=== PATIENT | female | born 1960 | race Caucasian/White ===

== ENCOUNTER → 2021-11-08 | Outpatient (CLI) | payer BC ==
[~2021-11-08] MED LIST: Ferrous Sulfat325 MG; METO25ER PO; NAPR550 PO; OXYACE5T PO; Omeprazole20 M1; SERT100 PO
== END | disposition home or self-care (01) ==
LOC: PLD 07:21 → LAB SHORT 07:21
DX: L72.9 Follicular cyst of the skin and subcutaneous tissue, unspecified (principal)
CPT/HCPCS: 88305

== ENCOUNTER → 2021-12-01 | Outpatient (CLI) | payer BC ==
[2021-12-05 15:11] LABS: HPV 16 Negative (Negative); HPV 18 Negative (Negative); HPV OTHER HR TYPES Negative (Negative)
== END ==
LOC: LAB SHORT 18:44 → LAB 18:44
PROVIDERS: Family Medicine
DX: Z12.4 Encounter for screening for malignant neoplasm of cervix (principal)
CPT/HCPCS: 87624; G0145

== ENCOUNTER 2023-08-02 13:15 | Day surgery (SDC) | payer OTHER ==
[~2023-08-02] VITALS: Ht 152.4 cm; Wt 56.7 kg
[2023-08-02] MEDS ORDERED: LOSA50 (13:39)
[2023-08-02] MEDS ORDERED: Prozac20 MG (13:39)
[2023-08-02] MEDS ORDERED: ATOR20 (13:39)
[2023-08-02] MEDS ORDERED: ZYRTEC10 M1 (13:40)
[2023-08-02] MEDS ORDERED: VITAMIN D31250 MC2 (13:40)
[2023-08-02] MEDS ORDERED: CENTRUM SILVER1 EAC2 (13:41)
--- NOTE | 2023-08-02 15:43 | NUR ---
08/02/23 1543 GUILLERMO BAILON DURING PROCEDURE, PT WAS DIFFICULT TO SEDATE AND DR. AMBROCIO WAS CONSULTED. PROPOFOL WAS GIVEN AT REDUCED PROTOCOL. DESPITE THIS, PT BECAME HYPOTENSIVE AND DR. THORPE ORDERED NO MORE PROPOFOL AND IV EPHEDRINE. PLEASE SEE EMAR FLOWSHEET FOR DETAILED MEDICATION ADMINISTRATION. PT WAS MEDICATED WITH VERSED NEXT TO FACILITATE PROCEEDING WITH PROCEDURE. DESPITE THIS PT'S BP CONTINUES TO DROP. DR. AMBROCIO OFFERED ADVICE OF IM EPHEDRINE 50 MG AND THIS WAS PERFORMED. PT BP NORMALIED AND IV PROPOFOL WAS ABLE TO BE USED TO CONTNUE CASE. SEE EMAR FOR DETAILED. DR. THORPE CONSULTED WITH DR. AMBROCIO AND DECIDED TO CANCEL EGD FOR NOW AND RESCHEDULE AT A LATER TIME WITH ANESTHESIA
[2023-08-02 16:08] VITALS: BP 131/67
== END 2023-08-02 16:10 | disposition home or self-care (01) ==
LOC: ORSCSDS 13:15
PROVIDERS: Internal Medicine Gastroenterology
PROC: 0DBN8ZX Excision of Sigmoid Colon, Via Natural or Artificial Opening Endoscopic, Diagnostic (ICD-10-PCS; principal; 2023-08-02 14:45)
DX: Z12.11 Encounter for screening for malignant neoplasm of colon (principal); Z86.010 Personal history of colon polyps; R12 Heartburn; K63.5 Polyp of colon; K57.30 Diverticulosis of large intestine without perforation or abscess without bleeding; E11.9 Type 2 diabetes mellitus without complications; Z79.899 Other long term (current) drug therapy
CPT/HCPCS: 82947; 88305; J0461; J1980; J2250; J2405; J2704; J7120; Q9968